=== PATIENT | female | born 2000 | race Caucasian/White ===

== ENCOUNTER 2020-08-08 11:10 | Emergency (ER) | payer OTHER ==
[~2020-08-08 11:10] MED LIST: AZITHROMYCIN; FLOMAX0.4 MG PO; K-DUR TAB 10 M10 MEQ PO; PRELONE SY15 MG/5 ML PO; TORADOL 10 MG T10 MG PO; ZOFRAN ODT 4 MG4 MG PO; ZOFRAN4 MG PO
[2020-08-08 12:19] LABS: HEMOGLOBIN 15.3 gm/dl (12.3-15.3); RED BLOOD COUNT 5.26 M/UL (4.00-5.10); WHITE BLOOD COUNT 7.4 K/UL (4.5-11.0)
[2020-08-08 12:51] LABS: BUN/CREATININE RATIO 20 (0-10)
== END 2020-08-08 18:33 | disposition short-term general hospital (02) ==
LOC: ER1 11:10
PROVIDERS: Emergency Medicine
DX: R47.1 Dysarthria and anarthria (principal)
CPT/HCPCS: 70450; 71045; 80053; 81001; 82550; 82553; 83874; 84484; 85025; 93005; 99285